=== PATIENT | male | born 1965 | race African-American/Black ===

== ENCOUNTER 2019-06-14 16:15 | Emergency (ER) | payer OTHER, BC, SELFPAY ==
[2019-06-14 16:16] VITALS: BP 162/109; PULSE 74; RESP 16; TEMP 36.9; O2SAT 100; BMI 28.7
--- NOTE | 2019-06-14 16:50 | RAD_ITS ---
STUDY: X-RAY - RIGHT KNEE REASON FOR EXAM: Male, 54 years old. Injury last night, pain TECHNIQUE: 4 view(s) of the knee. COMPARISON: None. FINDINGS: Normal visualized distal femur. Normal visualized proximal tibia and fibula. Normal proximal tibiofibular articulation. Normal medial femorotibial compartment. Normal lateral femorotibial compartment. Normal patellofemoral articulation. A 2 mm linear metallic foreign body projects over the distal lateral soft tissues. RAD/Knee 4 or More Views IMPRESSION: No acute osseous injury is evident. A 2 mm linear metallic foreign body projects over the distal lateral soft tissues. Electronically Signed: Triston Wilkinson MD at 17:12 EDT Tel , Service support ,
[2019-06-14] MEDS: Naproxen 500 MG Tablet PO (17:06)
--- NOTE | 2019-06-14 17:19 | ED.DCSUM_ITS ---
- ER Visit Summary Date of Service: 06/14/19 Chief Complaint: Right knee injury History of Present Illness: The patient is a 54 M who presents with right knee pain. He injured it at work last night. He twisted his knee and heard a pop sound. He has difficulty walking because the pain is so severe. He denies any other associated symptoms. Physical Examination: Afebrile and vital signs unremarkable. Inspection of his lower extremities is unremarkable. He has anterior right knee tenderness and pain with range of motion and with stress in all directions. There is no laxity. He has trouble extending his knee because of the pain. He is neurovascular intact distally. The remainder of his right leg is unremarkable. Test Results: X-rays show no acute osseous abnormality. There is an incidental 2 mm foreign body distal and lateral to the knee, and this is unrelated to his current issue. Emergency Department Course and Treatment: Patient treated with ice pack and naproxen. He is driving today and did not receive controlled substances here. X-rays as above. I am concerned given the amount of pain he is having. He may have a ligamentous injury. Patient was prescribed knee immobilizer and crutches. Return to work, nonweightbearing on the right. He was given a short course of pain medicine and precautions for pain medicine/controlled substances. He will follow-up with corporate [facility] and orthopedics. Treatment Plan: As above Disposition: Discharge Impression: 1. Right knee sprain This note was generated with [employer] dictation software. It may contain incorrect words, spelling, and punctuation that were not noted in review of the chart prior to signing ED Disposition - Plan for ED Patient: Referrals: Care Physician,No Primary [Primary Care Provider] -
--- NOTE | 2019-06-14 17:22 | DCINST.ED_ITS ---
ED Disposition - Plan for ED Patient: Instructions: KNEE PAIN, Uncertain Cause Prescriptions: Hydrocodone Bitart/Apap 5-325 [[place] 5MG-325MG] 1 tab PO Q6H PRN PRN 3 Days #12 tab PRN Reason: Pain Prescription Printed Referrals: Tho Delacruz DO [STAFF PHYSICIAN] - [facility] [GROUP OF PHYSICIANS] -
--- NOTE | 2019-06-14 17:22 | ED.DEP ---
ED Disposition - Plan for ED Patient: Instructions: KNEE PAIN, Uncertain Cause Prescriptions: Hydrocodone Bitart/Apap 5-325 [[place] 5MG-325MG] 1 tab PO Q6H PRN PRN 3 Days #12 tab PRN Reason: Pain Prescription Printed Referrals: Tho Delacruz DO [STAFF PHYSICIAN[facility] - [facility] [GROUP OF PHYSICIANS] -
== END 2019-06-14 17:46 | disposition home or self-care (01) ==
LOC: ED 17:04
PROVIDERS: Emergency Provider Emergency Medicine
DX: S83.91XA Sprain of unspecified site of right knee, initial encounter (principal); X50.1XXA Overexertion from prolonged static or awkward postures, initial encounter; Y92.89 Other specified places as the place of occurrence of the external cause; Y99.0 Civilian activity done for income or pay
CPT/HCPCS: 73564; 99284